=== PATIENT | female | born 1965 | race Caucasian/White ===

== ENCOUNTER 2020-06-30 08:27 | Emergency (ER) | payer OTHER, MEDICAID ==
[~2020-06-30] VITALS: Ht 172.7 cm; Wt 81.7 kg
[~2020-06-30 08:27] MED LIST: BACTRIM DS TAB1 EACH PO; DOXYCYCLINE 10100 MG PO; NOHOMEMEDICATIONS; NORCO 5-325 TA1 EACH PO; PERCOCET 5-3251 EACH PO
[2020-06-30] MEDS ORDERED: MEDROL4 M1 PO (09:01)
[2020-06-30] MEDS ORDERED: AUGMENTIN 875-1 EACH PO (09:01)
[2020-06-30 09:09] VITALS: BP 147/87
== END 2020-06-30 09:09 | disposition home or self-care (01) ==
LOC: M.ERS 08:27
DX: K04.7 Periapical abscess without sinus (principal)